=== PATIENT | male | born 1965 | race Caucasian/White ===

== ENCOUNTER 2019-06-29 17:40 | Emergency (ER) | payer OTHER ==
[2019-06-29] MEDS ORDERED: fentaNYL 100 MCG/2 ML SDV IVPUSH ONE ×2 (17:50→19:12)
[2019-06-29] MEDS ORDERED: Ondansetron 4 MG/2 ML SDV IVPUSH ONE (17:51)
--- NOTE | 2019-06-29 18:14 | EDM.PDOC ---
ED HPI GENERAL MEDICAL PROBLEM - General Chief Complaint: Upper Extremity Injury/Pain Stated Complaint: FELL HURT WRIST Time Seen by Provider: 06/29/19 17:49 Source of Information: Reports: Patient History Limitations: Reports: No Limitations - History of Present Illness INITIAL COMMENTS - FREE TEXT/NARRATIVE: 54 y/o male fell about 6 ft off a ladder onto his right upper extremity. He complains of right wrist pain, but denies any other injury. Right Arm Pain Score (Numeric/FACES): 6 - Related Data Allergies Allergy/AdvReac Type Severity Reaction Status Date / Time No Known Allergies Allergy Verified 06/29/19 17:52 Home Meds: Home Meds NK [No Known Home Meds] 06/29/19 [History] Review of Systems - Review of Systems Review Of Systems: See Below Constitutional: Reports: No Symptoms Eyes: Reports: No Symptoms Ears: Reports: No Symptoms Nose: Reports: No Symptoms Mouth/Throat: Reports: No Symptoms Respiratory: Reports: No Symptoms Cardiovascular: Reports: No Symptoms GI/Abdominal: Reports: No Symptoms Genitourinary: Reports: No Symptoms Musculoskeletal: Reports: Other (he has pain and swelling of the right wrist. He has pain of his left elbow. ) Skin: Reports: No Symptoms Neurological: Reports: No Symptoms ED EXAM, GENERAL - Physical Exam Exam: See Below Exam Limited By: No Limitations General Appearance: Alert, WD/WN, No Apparent Distress, Moderate Distress Ears: Normal External Exam, Normal Canal, Normal TMs Nose: Normal Inspection Head: Atraumatic Neck: Normal Inspection Respiratory/Chest: No Respiratory Distress, Lungs Clear, Chest Non-Tender Cardiovascular: Other (Normal right radial pulse, good capillary refill. The skin of the right hand is warm and dry. ) ED TRAUMA EXTREMITY PROCEDURES - Joint Reduction Site: Other (right wrist) Sedation: Conscious Sedation, Other (Propofol) Pre-Procedure NV Status: Normal Post-Procedure NV Status: Normal Technique: Traction/Counter Traction Number of Attempts: 1 Post-Reduction Imaging: Acceptably Reduced, Fracture Seen Joint Reduction Complications: No Course - Vital Signs Last Recorded V/S: Last Vital Signs Temp 35.7 C 06/29/19 17:49 Pulse 64 06/29/19 19:55 Resp 9 L 06/29/19 19:55 BP 151/88 H 06/29/19 19:55 Pulse Ox 99 06/29/19 19:55 - Orders/Labs/Meds Labs: Laboratory Tests 06/29/19 Range/Units 18:13 WBC 5.7 (4.5-11.0) K/uL RBC 4.32 (4.30-5.90) M/uL Hgb 13.4 (12.0-15.0) g/dL Hct 40.4 (40.0-54.0) % MCV 94 (80-98) fL MCH 31 (27-31) pg MCHC 33 (32-36) % Plt Count 210 (150-400) K/uL Neut % (Auto) 56 (36-66) % Lymph % (Auto) 32 (24-44) % [place] % (Auto) 8 H (2-6) % Eos % (Auto) 4 (2-4) % Baso % (Auto) 1 (0-1) % Meds: Medications Discontinued Medications Generic Name Dose Route Start Last Admin Trade Name Freq PRN Reason Stop Dose Admin Fentanyl 100 mcg 06/29/19 17:50 06/29/19 18:00 Sublimaze IVPUSH 06/29/19 17:51 100 mcg ONETIME ONE Administration Fentanyl 50 mcg 06/29/19 19:12 06/29/19 19:16 Sublimaze IVPUSH 06/29/19 19:13 50 mcg ONETIME ONE Administration Ondansetron HCl 4 mg 06/29/19 17:51 06/29/19 17:58 Zofran IVPUSH 06/29/19 17:52 4 mg ONETIME ONE Administration Propofol 160 mg 06/29/19 18:58 06/29/19 19:18 Diprivan 20 Ml IVPUSH 06/29/19 18:59 160 mg ONETIME ONE Administration - Re-Assessments/Exams Free Text/Narrative Re-Assessment/Exam: 06/29/19 17:53 He was examined. His primary screen included normal breathing, airway and circulation. Secondary exam includes normal head, neck, shoulders, chest and abdomen. His right wrist is deformed with a silver spoon deformity. A temporary splint was applied, IV started, IV pain meds and imagining and blood work ordered. 06/29/19 18:17 His right wrist xray shows a comminuted, impacted and dorsally angulated distal radius. His elbow xray is normal. 08/17/19 19:40 Discussed the fracture with orthopedic [employer]ER, carroll Lr DL. Recommended closed reduction. Dr Sage preformed conscious sedation with propofol. Fentanyl was given for analgesia. Under good sedation a closed reduction was done and a sugar tong splint applied. Post reduction film showed adequate reduction. The patient tolerated it well. Departure - Departure Time of Disposition: 20:20 Disposition: Home, Self-Care 01 Condition: Good Clinical Impression: Fracture of radius - Discharge Information *PRESCRIPTION DRUG MONITORING PROGRAM REVIEWED*: Not Applicable *COPY OF PRESCRIPTION DRUG MONITORING REPORT IN PATIENT KAYLYN: Not Applicable Instructions: Moderate Conscious Sedation, Adult, Care After, Cast or Splint Care, Adult, [id number] Referrals: PCP,None [Primary Care Provider] - Forms: ED Department Discharge Additional Instructions: Call [facility] ([phone]) on Monday for an appointment to be seen. You will most likely need surgery sometime next week. Keep your right arm elevated and use ice packs on it periodically to reduce pain and swelling. Loosen the bandages if you experience increased pain, or numbness. Go to the ER if you have any increased problems or concerns. Take hydrocodone as prescribed for pain. Take ibuprofen 600 mg three times a day as needed for pain.
[2019-06-29] MEDS ORDERED: Propofol 200 MG/20 ML SDV IVPUSH ONE (18:58)
--- NOTE | 2019-06-29 19:12 | CRLCR ---
INDICATION: Right wrist injury. TECHNIQUE: Two lateral projections of the right wrist. AP projection not provided. COMPARISON : None. FINDINGS : Acute comminuted, impacted and displaced distal radial metaphysis fracture. Articular cortex involved. Primary distal fragments displaced dorsally with respect to the shaft fragment. Otherwise, unremarkable. IMPRESSION: 1. Unconventional right wrist exam lacking in AP image. 2. Acute, comminuted, impacted and displaced distal radial metaphysis fracture with involvement of the articular cortex. Dictated by Kash Machado MD @ Jun 29 2019 7:06PM Signed by Dr. Kash Machado @ Jun 29 2019 7:10PM
--- NOTE | 2019-06-29 19:16 | CRLCR ---
INDICATION: Right elbow injury. TECHNIQUE: AP and lateral projections, both rotated. COMPARISON: None. FINDINGS: Fiberglass splint in place. Attempted lateral view rotated, precluding evaluation of the fat pads. No obvious acute fracture. No subluxation or other abnormality. IMPRESSION: Nonconventional x-ray study of the right elbow. No obvious fracture. However, fat pads cannot be evaluated on the lateral projection, which is rotated. Dictated by Kash Machado MD @ Jun 29 2019 7:11PM Signed by Dr. Kash Machado @ Jun 29 2019 7:15PM
--- NOTE | 2019-06-29 19:48 | CRLCR ---
Indication: Closed reduction Technique: Right wrist two views Comparison: Earlier today Findings: Comminuted and displaced intra-articular fracture of the distal radial metaphysis again noted with dorsal impaction. Alignment improved since prior examination with near neutral alignment of the distal radial articular surface status post close reduction. [place]ssicle adjacent to the ulnar styloid again noted. Impression: Improved alignment of the comminuted and displaced fracture of the distal radial metaphysis since prior study. Dictated by Singh Carr MD @ Jun 29 2019 7:46PM Signed by Dr. Singh Carr @ Jun 29 2019 7:47PM
== END 2019-06-29 20:31 | disposition home or self-care (01) ==
LOC: EDSEX 17:40 → JP.ED 17:40
DX: S52.501A Unspecified fracture of the lower end of right radius, initial encounter for closed fracture (principal); W11.XXXA Fall on and from ladder, initial encounter
CPT/HCPCS: 25605; 36415; 73070; 73100; 85025; 96374; 96375; 96376; 99152; 99283; J2405; J2704; J3010

== ENCOUNTER 2022-01-13 07:39 | Day surgery (SDC) | payer BC, OTHER ==
[~2022-01-13 07:39] MED LIST: Midazolam 1 MG/ML 2 ML SDV ONE; Propofol 200 MG/20 ML SDV ONE; fentaNYL 100 MCG/2 ML SDV ONE
[2022-01-13] MEDS ORDERED: Sodium Chloride 0.9% 1,000 ML IV SCH (08:45)
[2022-01-13] MEDS ORDERED: Propofol 200 MG/20 ML SDV ONE (09:46)
== END 2022-01-13 11:06 | disposition home or self-care (01) ==
LOC: JP.SDS 07:39
PROVIDERS: ATTEND Surgery
DX: Z12.11 Encounter for screening for malignant neoplasm of colon (principal)
CPT/HCPCS: J2250; J2704; J3010; J7030